=== PATIENT | female | born 1945 | race Caucasian/White ===

== ENCOUNTER 2017-11-20 06:31 | Day surgery (SDC) ==
[2017-11-20] MEDS: TETRACAINE 0.5% UNIT-DOSE OP PRN ×2 (06:48→07:39)
[2017-11-20] MEDS: BETADINE OPTH PREP OP PRN ×2 (06:48→07:39)
[2017-11-20] MEDS: CYCLOGYL 2% OPTH OP PRN ×3 (06:49→06:59)
[2017-11-20] MEDS ORDERED: BRIMONIDINE TARTRATE 0.2% OPTH SOL OP PRN (07:05)
[2017-11-20] MEDS ORDERED: ZOFRAN 4 MG/2 ML IVP ONE (07:05)
[2017-11-20] MEDS ORDERED: BSS WITH EPINEPHRINE OP ONE (07:05)
[2017-11-20] MEDS ORDERED: DEX-MOXI-KETOR OPTH INJ 1/0.5/0.4 MG/ML IO ONE (07:05)
[2017-11-20] MEDS ORDERED: LIDOCAINE 1% 20 ML MDV ID STA (07:05)
[2017-11-20] MEDS ORDERED: LIDOCAINE 1%/PHENYLEPHRINE 1.5% BSS (SURGERY) INTRAOCULA ONE (07:05)
[2017-11-20] MEDS ORDERED: VERSED ONE (07:50)
[2017-11-20] MEDS ORDERED: SUBLIMAZE ONE (07:50)
[2017-11-20 12:13] VITALS: BP 127/67
== END 2017-11-20 08:35 | disposition home or self-care (01) ==
LOC: SURG 06:31
PROVIDERS: ATTEND Ophthalmology
DX: H25.11 Age-related nuclear cataract, right eye (principal)

== ENCOUNTER 2017-12-05 09:55 | Day surgery (SDC) ==
[2017-12-05] MEDS: TETRACAINE 0.5% UNIT-DOSE OP PRN ×3 (11:01→11:50)
[2017-12-05] MEDS: BETADINE OPTH PREP OP PRN ×3 (11:01→11:50)
[2017-12-05] MEDS: CYCLOGYL 2% OPTH OP PRN ×6 (11:02→11:38)
[2017-12-05] MEDS ORDERED: BSS WITH EPINEPHRINE OP ONE (11:35)
[2017-12-05] MEDS ORDERED: DEX-MOXI-KETOR OPTH INJ 1/0.5/0.4 MG/ML IO ONE (11:35)
[2017-12-05] MEDS ORDERED: LIDOCAINE 1% 20 ML MDV ID STA (11:35)
[2017-12-05] MEDS ORDERED: ZOFRAN 4 MG/2 ML IVP ONE (11:35)
[2017-12-05] MEDS ORDERED: LIDOCAINE 1%/PHENYLEPHRINE 1.5% BSS (SURGERY) INTRAOCULA ONE (11:35)
[2017-12-05] MEDS ORDERED: BRIMONIDINE TARTRATE 0.2% OPTH SOL OP PRN (11:35)
[2017-12-05] MEDS ORDERED: SUBLIMAZE ONE (12:00)
[2017-12-05] MEDS ORDERED: VERSED ONE (12:00)
[2017-12-05 16:56] VITALS: TEMP 97.6
[2017-12-07 13:27] VITALS: BP 122/78
== END 2017-12-05 13:00 | disposition home or self-care (01) ==
LOC: SURG 09:55
PROVIDERS: ATTEND Ophthalmology
DX: H25.12 Age-related nuclear cataract, left eye (principal)